=== PATIENT | male | born 1985 | race Caucasian/White ===

== ENCOUNTER 2024-12-04 18:40 | Emergency (ER) | payer SELFPAY ==
[2024-12-04 19:18] VITALS: BP 142/70; PULSE 68; RESP 18; TEMP 37.1; O2SAT 98; BMI 26.8
--- NOTE | 2024-12-04 19:36 | EDNOTE_ITS ---
ED Male Genitalurinary RME/HPI General Chief complaint: Urogenital-Male Stated complaint: STD CHECK Time Seen by Provider: 12/04/24 19:32 Arrival date/time: 12/04/24 18:40 39M with no significant PMH presents to ED wanting STD check. Patient thinks he may have syphillis as an ex-partner did. Patient would also like a Valtrex Rx in case of herpes flare. Patient would also like to be treated empirically for GC. Limitations: no limitations Related Data Previous Rx's ?Medication ?Instructions ?Recorded dextroamphetamine-amphetamine 30 30 mg PO BID 1 week # 14 tabs 12/04/24 mg tablet (Adderall) doxycycline hyclate 100 mg tablet 100 mg PO BID 14 day s #28 tabs 12/04/24 valacyclovir 500 mg tablet 1,000 mg (2 x 500 mg) PO QD AY 5 12/04/24 days #10 tabs Allergies Allergy/AdvReac Type Severity Reaction Status Date / Time No Known Allergies Allergy Verified 12/04/24 18:43 Review of Systems Review of Systems Systems Reviewed: All systems reviewed, normal except as documented Past Medical History Social History SMOKING STATUS: Never smoker ED Exam General Limitations: Present no limitations General appearance: Present alert and in no apparent distress Head Head exam: Present atraumatic Neck Neck exam: Present normal inspection, full ROM and trachea midline Chest Chest inspection: Present normal inspection and symmetric chest wall rise Neurological Exam Neurological exam: Present alert and oriented X3 Psychiatric Psychiatric exam: Present normal affect and normal mood Skin Skin exam: Present warm, dry, intact and normal color Course Quality Measures none Orders Category Date Time Status Chlamydia/GC/TV - PCR Stat Lab 12/04/24 20:12 Received Drug Screen,Urine Stat Lab 12/04/24 20:12 Completed HIV (1&2) Antibody Rapid Stat Lab 12/04/24 19:56 Completed MHATP/TP-PA* Stat Lab 12/04/24 19:56 Received Syphilis Stat Lab 12/04/24 19:56 Completed Urinalysis, C/S if Indicated Stat Lab 12/04/24 20:12 Completed PEN G ERICH (Bicillin LA) [Bicillin La Inj] Med 12/04/24 21:25 Discontinued 2.4 mmu IM X1 ONE cefTRIAXone [Rocephin] 1,000 mg Med 12/04/24 19:32 Discontinued Lidocaine 1% 20 ml [Xylocaine 1% 20 ML] 2.1 ml IM X1 Vital Signs Vital signs: Vital Signs Temperature 98.8 F 12/04/24 19:18 Pulse Rate 68 12/04/24 19:18 Respiratory Rate 18 12/04/24 19:18 Blood Pressure 142/70 H 12/04/24 19:18 Pulse Oximetry (%) 98 12/04/24 19:18 Oxygen Delivery Method Room Air 12/04/24 19:18 O2 at 98% on RA and WNLs Urogenital - Male MDM Narrative MDM Narrative:: 39M with no significant PMH presents to ED wanting STD check. Patient thinks he may have syphillis as an ex-partner did. Patient would also like a Valtrex Rx in case of herpes flare. Patient would also like to be treated empirically for GC. Physical exam reveals well-appearing male. Speech normal. Genital exam deferred. Patient is afebrile, calm, and alert. Syphilis screen positive, so will treat. However, out of IM penicillin, so will give doxy, which will dual cover for chlamydia. Counseled to follow-up with test results. Short Adderall refill given (30 mg BID), as well as Valtrex. Patient data External records reviewed:: None Clinical information provided by:: patient Social determinants that could affect healthcare access:: none Patient has the following chronic illnesses:: none How is presenting disease/condition affected by chronic disease/condition?: no chronic disease Evaluation data The following diagnostics were reviewed and interpreted by me:: lab results Lab and/or radiology exams considered but not ordered:: ordered Interpretation Summary: above Medications / Prescriptions Medications or Prescriptions considered but not ordered:: ordered Medication administrations:: Medication Administration History Discontinued Medications Ceftriaxone Sodium 1,000 mg/ (Lidocaine HCl 2.1 ml) 0 mg IM X1 ONE Stop: 12/04/24 19:33 Last Admin: 12/04/24 19:49 Dose: 1,000 mg Documented By: MICHELLE Penicillin G Benzathine (Pen G Erich (Bicillin La) 1.2 Mmu/2 Ml Syrg) 2.4 mmu IM X1 ONE Stop: 12/04/24 21:26 Last Admin: 12/04/24 21:47 Dose: Not Given Documented By: MICHELLE Non-Admin Reason: Medication Not Available above Consultations Consultation(s) initiated? (list below): No Diagnosis Urogenital Male Differential Diagnosis: urinary tract infection, priapism, urethritis, epididymitis, genital herpes simplex, prostatitis, acute retention of urine, inguinal hernia and other (male concern for STD w/o diagnosis, syphilis and medication refill) Most likely diagnosis given after review of the tests above:: syphilis and medication refill Admission Indicated Admission indicated?: not indicated Admission Request Was there a request for admission?: No Disposition Plan Disposition Plan: Discharge Discharge Attestation Discharge Attestation: The patient and all family members were given an opportunity to ask questions and understood the discharge instructions. Discharge instructions specifically effects, indications for sooner follow up or return to the emergency department, and the expected course of current diagnosis. Patient condition: Stable Discharge Plan Plan Patient Disposition: HOME (Self Care) Discharge Disposition comment: Stable Prescriptions/Referrals Prescriptions/Med Rec: New valacyclovir 500 mg tablet 1,000 mg PO QDAY 5 Days Qty: 10 0RF dextroamphetamine-amphetamine [Adderall] 30 mg tablet 30 mg PO BID MDD 2 7 Days Qty: 14 0RF Rx Instructions: administer doses at least 4-6 hours apart doxycycline hyclate 100 mg tablet 100 mg PO BID 14 Days Qty: 28 0RF Referrals: No Primary/Family,Physician [Primary Care Provider] - In 1 week Problem List Clinical Impression: Syphilis, Medication refill Patient/Caregiver Discharge Instructions Education Materials: Syphilis Additional Instructions: Please follow-up with PCP within 24-48 hours and return immediately if symptoms worsen. Follow-up with patient portal and/or medical records to see results of gonorrhea/chlamydia and specific syphilis test. Print Language: Kinyarwanda Stand Alone Forms: Patient Portal Info Letter LYNETTE/DENIZ Supervising Physician LYNETTE/DENIZ Supervising Physician: Dr. Escalante
[2024-12-04] MEDS: cefTRIAXone 1,000 MG, LIDOCAINE 1% 20 ML 2.1 ML IM (19:49)
[2024-12-04 20:17] LABS: Collection Type, Urine Clean Catch; Squamous Epithelial Cell,Urine 0 /hpf (0-5)
[2024-12-04 20:35] LABS: Amphetamine/Methamp Scrn,U Negative (Negative); Barbiturate Screen,Urine Negative (Negative); Benzodiazepines Screen,Urine Negative (Negative); Benzoylecgonine Screen, Ur Negative (Negative); Fentanyl Screen,Urine Negative (Negative); Opiate Screen,Urine Negative (Negative); THC Screen,Urine Negative (Negative)
[2024-12-04 20:44] LABS: HIV (1&2) Antibody Rapid Non-Reactive
[2024-12-04 20:44] LABS: Bilirubin,Urine Negative (Negative); Blood,Urine Negative (Negative); Clarity,Urine Clear (Clear/Hazy); Color,Urine Lt-Yellow (Lt Yel-Yel); Culture Indicated,Urine Not Indicated; Glucose, Urine Negative (Negative); Ketones,Urine Negative (Negative); Leukocyte Esterase,Urine Negative (Negative); Nitrite,Urine Negative (Negative); PH,Urine 6.5 (5.0-7.0); Protein,Urine Trace (Neg - Trace); RBC,Urine 3 /hpf (0-3); Specific Gravity,Urine 1.028 (1.001-1.035); Urobilinogen,Urine Negative mg/dL (0.0-1.0); WBC,Urine 1 /hpf (0-5)
[2024-12-04 21:05] LABS: Syphilis Reactive (Nonreactive)
[2024-12-04 21:06] LABS: MHATP/TP-PA* See Sep Rpt
[2024-12-05 11:35] LABS: Chlamydia trachomatis PCR Negative (Not Detect); Neisseria Gonorrhoeae DNA PCR Negative (Not Detect); Trichomonas Negative (Negative)
== END 2024-12-04 21:47 | disposition home or self-care (01) ==
PROVIDERS: Physician Assistant; Emergency Provider Emergency Medicine
DX: A53.9 Syphilis, unspecified (principal)
CPT/HCPCS: 36415; 80307; 81001; 86703; 86780; 87491; 87591; 87661; 96372; 99283; J0696; J3490